=== PATIENT | male | born 1970 | race African-American/Black ===

== ENCOUNTER 2020-11-29 19:08 | Emergency (ER) | payer MEDICAID ==
[~2020-11-29] VITALS: Ht 180.3 cm; Wt 84.8 kg
--- NOTE | 2020-11-29 19:30 | NUR ---
Dr. Doyle at bedside for MSE.
[2020-11-29] MEDS ORDERED: [UNRECOGNIZED DRUG - REMARK] (19:37)
[2020-11-29] MEDS ORDERED: [UNRECOGNIZED DRUG - REMARK] (19:37)
[2020-11-29] MEDS ORDERED: [UNRECOGNIZED DRUG - REMARK] (19:37)
[2020-11-29 19:50] LABS: BASOPHILS % (AUTO) 0.3 % (0.0-2.0); EOSINOPHILS # (AUTO) 0.1 K/uL (0.0-0.7); EOSINOPHILS % (AUTO) 0.9 % (0.0-7.0); HEMATOCRIT 43.6 % (36.7-47.1); HEMOGLOBIN 14.3 g/dL (12.5-16.3); LYMPHOCYTES # (AUTO) 2.2 K/uL (20.0-40.0); MEAN CORPUSCULAR HEMOGLOBIN 23.1 uug (23.8-33.4); MEAN CORPUSCULAR HGB CONC 33 g/dL (32.5-36.3); MEAN CORPUSCULAR VOLUME 70.5 fL (73.0-96.2); MONOCYTES # (AUTO) 0.5 K/uL (2.0-10.0); MONOCYTES % (AUTO) 5.2 % (0.0-11.0); NEUTROPHILS # (AUTO) 7.6 K/uL (1.8-8.9); NEUTROPHILS % (AUTO) 72.6 % (38.5-71.5); PLATELET COUNT (AUTO) 247 K/uL (152-348); RED BLOOD CELL COUNT(AUTO) 6.18 MIL/uL (4.06-5.63); WHITE BLOOD COUNT (AUTO) 10.4 K/uL (3.6-10.2)
[2020-11-29 19:53] LABS: CARBON DIOXIDE 28 mmol/L (21-32); CHLORIDE 100 mmol/L (98-107); CREATININE 1.5 mg/dL (0.6-1.3); GLUCOSE 258 mg/dL (74-106); UREA NITROGEN, BLOOD 13 mg/dL (7-18)
[2020-11-29 19:58] LABS: ALANINE AMINOTRANSFERASE 22 U/L (16-63); ALKALINE PHOSPHATASE 69 U/L (50-136); ASPARTATE AMINOTRANSFERASE 13 U/L (15-37); BILIRUBIN,DIRECT 0.2 mg/dL (0.0-0.2); BILIRUBIN,TOTAL 0.4 mg/dL (0.2-1.0); TOTAL PROTEIN, SERUM 7.9 g/dL (6.4-8.2)
[2020-11-29 19:59] LABS: ACETAMINOPHEN < 2.0 ug/mL (10-30)
[2020-11-29 20:02] LABS: ETHANOL < 3 MG/DL (0-0)
--- NOTE | 2020-11-29 20:50 | NUR ---
Pt still unable to provide urine sample.
--- NOTE | 2020-11-29 20:57 | NUR ---
Pt provided urine sample, sent to lab.
[2020-11-29 21:11] LABS: *BILIRUBIN,URIN NEGATIVE (NEGATIVE); *BLOOD, URINE NEGATIVE (NEGATIVE); *CLARITY,URINE CLEAR (CLEAR); *COLOR,URINE YELLOW (YELLOW); *KETONES,URINE NEGATIVE (NEGATIVE); LEUKOCYTE ESTERASE ,URINE NEGATIVE (NEGATIVE); NITRITE, URINE NEGATIVE (NEGATIVE); PH,URINE 5.5 (5.0-8.0); UGLUCOSE 2+ (NEGATIVE)
[2020-11-29 21:18] LABS: *AMPHETAMINE, URINE NEGATIVE (NEGATIVE); *CANNABINOID, URINE NEGATIVE (NEGATIVE); *COCCAINE, URINE NEGATIVE (NEGATIVE); *OPIATE, URINE NEGATIVE (NEGATIVE); *PHENCYCLIDINE SCREEN,URINE NEGATIVE (NEGATIVE)
--- NOTE | 2020-11-29 21:45 | NUR ---
Received call back from Shaye Gonzalez RN PET, spoke with Dr. Doyle.
[2020-11-29] MEDS ORDERED: OLANZAPINE 10 MG VIAL IM ONE (22:08)
[2020-11-29] MEDS ORDERED: OLANZAPINE 5 MG TABLET ONE (22:10)
[2020-11-29] MEDS ORDERED: OLANZAPINE 5 MG TABLET PO ONE (22:15)
--- NOTE | 2020-11-29 22:54 | NUR ---
Shaye Gonzalez RN PET team at bedside for pt psych eval.
--- NOTE | 2020-11-30 00:06 | NUR ---
Patient discharged to home in stable condition. Written and verbal after care instructions given. Patient verbalizes understanding of instructions. Stressed follow up or return to ER for worsening s/s. Patient out of ER with steady gait, no acute signs of distress, VSS, all belongings taken, provided with copies of lab results, given list of community resources, instructed to follow up with a psychiatrist, instructions also given to , patient out of ER accompanied by , to be driven home by via private vehicle.
[2020-11-30 00:08] VITALS: BP 118/70
== END 2020-11-30 00:08 | disposition home or self-care (01) ==
LOC: ER 19:13
DX: F41.9 Anxiety disorder, unspecified (principal); E11.65 Type 2 diabetes mellitus with hyperglycemia; Z79.84 Long term (current) use of oral hypoglycemic drugs; E78.5 Hyperlipidemia, unspecified; Z20.822 Contact with and (suspected) exposure to COVID-19
CPT/HCPCS: 36415; 85025; A4663; G0480; J2358